=== PATIENT | male | born 1950 | race Caucasian/White ===

== ENCOUNTER 2025-03-22 21:25 | Emergency (ER) | payer OTHER, SELFPAY ==
--- NOTE | 2025-03-22 21:33 | ED_ITS ---
HPI - Extremity Injury (Upper) General Chief Complaint: Extremity Injury, Upper Stated Complaint: Left hand injury Time Seen by Provider: 03/22/25 21:33 History of Present Illness HPI narrative: Patient is a 75-year-old male without any significant past medical history comes to the ED from home for evaluation of cut to the left pinky finger, he said earlier today he nicked it with a chain saw, not up-to-date on tetanus, states that he got the bleeding to stop but when he took off the bandage it started bleeding again. She is not on any blood thinners not complaining of any other symptoms Related Data Previous Rx's ?Medication ?Instructions ?Recorded cephalexin 500 mg capsule 500 mg PO Q6H 7 days #28 cap s 03/22/25 Allergies Allergy/AdvReac Type Severity Reaction Status Date / Time No Known Drug Allergies Allergy Verified 03/22/25 21:36 Review of Systems Review of Systems Narrative: General: Denies fever, chills, weight loss HEENT: Denies headache, eye drainage, eye irritation, head trauma, sore throat, voice change Cardiovascular: Denies any chest pain, palpitations, tachycardia Respiratory: Denies any shortness of breath, cough, wheeze, stridor GI/: Denies any abdominal pain, nausea, vomiting, diarrhea, bright red blood per rectum, melanotic stools, urinary frequency, urinary retention, dysuria, hematuria MSK: Laceration to the left pinky Skin: Denies any rashes, lesions, discoloration Neuro: Denies any headache, lightheadedness, dizziness, fainting, weakness Psych: Denies SI/HI Patient History Social History Smoking Status: Never smoker Exam Narrative Exam Narrative: General: Cooperative, well-developed, not in acute distress HEENT: Normocephalic, atraumatic, PERRLA, normal sclera, eyelids normal Neck: Active full range of motion, atraumatic Chest: Normal to inspection, negative crepitus, no overlying erythema ecchymosis Respiratory: Normal respiratory effort, not in acute respiratory distress, clear to auscultation bilaterally negative cough, wheeze, tachypnea, rhonchi, rales Cardiology: Regular rate rhythm negative gallop, murmur, rubs GI/: No tenderness to palpation, soft, non rigid, normal to inspection, exam deferred MSK: Full active range of motion in all 4 extremities, atraumatic, patient with complicated laceration to the palmar aspect of the left pinky, no foreign bodies noted does appear superficial, otherwise neurovascularly intact Skin: No rashes or lesions noted Neuro: Alert awake oriented x3, moves all 4 extremities spontaneously, cranial nerves intact, able to answer all questions appropriately follows commands appropriately Psych: Cooperative, negative suicidal or homicidal ideations Initial Vital Signs Initial Vital Signs: Vital Signs Temperature 98.2 F 03/22/25 21:36 Pulse Rate 69 03/22/25 21:36 Respiratory Rate 18 03/22/25 21:36 Blood Pressure 169/91 H 03/22/25 21:36 Pulse Oximetry 100 03/22/25 21:36 Oxygen Delivery Method Room Air 03/22/25 21:36 Procedures Laceration Repair Laceration 1: Time of procedure: 22:57 Site: hand Side (If applicable): left Size (cm): 2 Description: irregular Depth: simple, single layer Local Anesthetic: lidocaine 1% Amount of anesthesia used (mL): 5 Skin layer closed with: other (Ethilon) Skin layer suture size: 4-0 Number of sutures: 9 Technique: simple, interrupted Course Orders Ordered: ED Orders 03/22/25 21:33 XR finger LT min 2V Stat 03/22/25 21:57 CBC Auto Diff [Complete Blood Count AUTO DIFF] Stat CMP [Comprehensive Metabolic Panel] Stat Discontinued Medications Diphtheria/Tetanus/Acell Pertussis (Tet,Diph,Pertuss(Acell),Vac/Pf 0.5 Ml Syringe) 0.5 ml IM .ONCE ONE Stop: 03/22/25 21:34 Last Admin: 03/22/25 21:49 Dose: 0.5 ml Documented By: Cefazolin Sodium 2 gm/ Sodium (Chloride) 100 mls @ 200 mls/hr IV NOW ONE Stop: 03/22/25 22:16 Last Infusion: 03/22/25 22:41 Dose: Infused Documented By: Admin: 03/22/25 22:05 Dose: 200 mls/hr Documented By: Vital Signs Vital signs: Vital Signs - 8 hr 03/22/25 21:36 Temperature 98.2 F Pulse Rate 69 Respiratory Rate 18 Blood Pressure 169/91 H Pulse Oximetry 100 Oxygen Delivery Method Room Air MDM - Extremity Injury (Upper) Differential Diagnosis Differential diagnosis: Likely other (Open fracture, laceration, abrasion, avulsion) Lab Data 03/22/25 21:57 03/22/25 21:57 Labs: Lab Results 03/22/25 Range/Units 21:57 WBC 9.5 (4.5-11.0) X10^3/uL RBC 4.51 (4.5-5.9) X10^6/uL Hgb 14.4 (13.5-17.5) g/dL Hct 41.3 (41-53) % MCV 91.6 (80-100) fL MCH 32.0 (26-34) PG MCHC 34.9 (30-36) % RDW 13.0 (11.6-14.8) % Plt Count 214 (150-400) X10^3/uL Neut % (Auto) 70.8 (50-75) % Lymph % (Auto) 22.9 L (25-40) % [place] % (Auto) 4.5 (3-14) % Eos % (Auto) 1.2 L (2-4) % Baso % (Auto) 0.6 (0-2) % Neut # (Auto) 6700 (8452-8203) /uL Lymph # (Auto) 2200 (1178-7740) /uL [place] # (Auto) 400 (0-900) /uL Eos # (Auto) 100 (0-450) /uL Baso # (Auto) 100 (0-100) /uL Sodium 138 (137-145) mmol/L Potassium 4.0 (3.4-5.1) mmol/L Chloride 102 (98-107) mmol/L Carbon Dioxide 28 (22-32) mmol/L BUN 17 (9-20) mg/dL Creatinine 0.97 (0.66-1.25) mg/dL Estimated GFR > 60 (>60) mL/min BUN/Creatinine Ratio 17.5 (6-22) Glucose 119 H (70-99) mg/dL Calcium 9.4 (8.4-10.2) mg/dL Total Bilirubin 0.8 (0.2-1.3) mg/dL AST 38 (17-59) IU/L ALT 36 (<50) IU/L Alkaline Phosphatase 48 (38-126) U/L Total Protein 7.7 (6.3-8.2) g/dL Albumin 4.6 (3.5-5.0) g/dL Globulin 3.1 (1.7-4.1) g/dL Albumin/Globulin Ratio 1.5 (1.0-2.8) Imaging Data Extremity x-ray #1: Radiologist's Impression: [address] [address] XRay Report Signed Patient: Patrick Deleon MR#: [id number] : 1950 Acct:[id number] Age/Sex: 75 / M Date of Service: 03/22/25 Loc: ED Accession Number: [id number] Procedure: XR finger LT min 2V Ordering Provider: Sylvester Leiva D.O. PROCEDURE: XR FINGER LT MIN 2V INDICATIONS: chainsaw to pinky TECHNIQUE: AP hand, 2 views of the left 5th finger(s) acquired. COMPARISON: None. FINDINGS: Bones: There is anatomic alignment. There is a osseous defect involving the medial region of the mid to distal diaphysis of the 5th proximal phalanx, with an osseous fragment measuring 1.35 cm in length, with moderate dorsal and medial displacement. There is no intra-articular extension. Soft tissues: Soft tissue injury seen in the adjacent region medially. IMPRESSION: Acute 5th proximal phalangeal fracture as above. MDM Narrative Medical decision making narrative: Patient is a 75-year-old male without any significant past medical history presenting for laceration to the left palmar aspect of the left pinky, states earlier today he nicked it on a chain saw. Patient had tetanus updated here. X-ray did not show acute bony abnormalities. Patient neurovascularly intact to the finger, sensations and motion all intact no tendon involvement. X-ray did show acute 5th proximal phalanx fracture. Patient had laceration repaired here in the emergency department. Had dose of Ancef. Patient was instructed follow up with the primary care and orthopedic surgery in outpatient setting he verbalized understanding of this and agrees to being discharged home with outpatient follow up 2154: Discussed case with Dr. Stanford, recommending dose of IV Ancef, laceration repair and washout as well as discharged home with oral Keflex and outpatient follow up Discharge Plan Departure Patient Disposition: Home Clinical Impression: Fracture of phalanx of finger, Finger laceration, Open fracture Instructions: DI for Laceration Repair Activity Restrictions/Additional Instructions: Please follow up with Orthopedic surgery and primary care in outpatient setting Please read the discharge instructions sheet carefully and bring all papers to all doctor follow-up visits, as it may contain information that your doctor may want to see. Disease processes change and evolve, if your symptoms worsen or if you develop any new symptoms that are concerning to you please return for evaluation. Your evaluation today does not show any evidence of any life- threatening/serious illnesses requiring admission to the hospital or surgery. Please follow-up with your doctor for re-evaluation in approximately 1 day. Seek immediate medical attention for any worrisome symptoms. *If you do not have a primary care provider please contact the [facility] Resource line at [phone]. They will ask some questions about your medical history and help get you set up with a doctor in the community. Prescriptions: New cephalexin 500 mg capsule 500 mg PO Q6H 7 Days Qty: 28 0RF Referrals: Elizabeth Stanford MD [Physician, Orthopedic Surgery] Stand Alone Forms: Patient Portal/API
[2025-03-22 21:36] VITALS: BP 169/91; PULSE 69; RESP 18; TEMP 36.8; O2SAT 100; BMI 25.2
[2025-03-22] MEDS: TET,DIPH,PERTUSS(ACELL),VAC/PF 0.5 ML SYRINGE IM (21:49)
[2025-03-22 22:04] LABS: Add Manual Diff / Slide Review NO; Basophils Absolute Auto 100 /uL (0-100); Basophils Percent Auto 0.6 % (0-2); Eosinophils Absolute Auto 100 /uL (0-450); Eosinophils Percent Auto 1.2 % (2-4); Hematocrit 41.3 % (41-53); Hemoglobin 14.4 g/dL (13.5-17.5); Lymphocytes Absolute Auto 2200 /uL (1100-4500); Lymphocytes Percent Auto 22.9 % (25-40); Mean Corpuscular HGB Conc 34.9 % (30-36); Mean Corpuscular Volume 91.6 fL (80-100); Monocytes Absolute Auto 400 /uL (0-900); Monocytes Percent Auto 4.5 % (3-14); Neutrophils Absolute Auto 6700 /uL (1500-7000); Neutrophils Percent Auto 70.8 % (50-75); Platelet Count 214 X10^3/uL (150-400); Red Blood Cell Count 4.51 X10^6/uL (4.5-5.9); White Blood Cell Count 9.5 X10^3/uL (4.5-11.0)
[2025-03-22] MEDS: CEFAZOLIN VIAL 2 GM in SODIUM CHLORIDE 0.9% 100 ML IV (22:05)
[2025-03-22 22:20] LABS: Alanine Aminotransferase 36 IU/L (<50); Albumin 4.6 g/dL (3.5-5.0); Albumin Globulin Ratio 1.5 (1.0-2.8); Alkaline Phosphatase 48 U/L (38-126); Aspartate Aminotransferase 38 IU/L (17-59); BUN Creatinine Ratio 17.5 (6-22); Bilirubin Total 0.8 mg/dL (0.2-1.3); Blood Urea Nitrogen 17 mg/dL (9-20); Calcium 9.4 mg/dL (8.4-10.2); Carbon Dioxide 28 mmol/L (22-32); Chloride 102 mmol/L (98-107); Estimated Glomerular Filt Rate > 60 mL/min (>60); Globulin 3.1 g/dL (1.7-4.1); Glucose 119 mg/dL (70-99); HEMOLYSIS 22 (0-50); Sodium 138 mmol/L (137-145); Total Protein 7.7 g/dL (6.3-8.2)
[2025-03-22 23:08] VITALS: BP 178/84; PULSE 59; RESP 14; O2SAT 98
== END 2025-03-22 23:11 | disposition home or self-care (01) ==
PROVIDERS: Emergency Provider Student in an Organized Health Care Education/Training Program
DX: S62.617A Displaced fracture of proximal phalanx of left little finger, initial encounter for closed fracture (principal); S61.217A Laceration without foreign body of left little finger without damage to nail, initial encounter; W29.3XXA Contact with powered garden and outdoor hand tools and machinery, initial encounter; Z23 Encounter for immunization
CPT/HCPCS: 12001; 36415; 73140; 80053; 85025; 90471; 96365; 99284; 90715; J0690